=== PATIENT | female | born 1955 | race African-American/Black ===

== ENCOUNTER 2018-12-28 18:55 | Emergency (ER) | payer MEDICAID ==
[~2018-12-28] VITALS: Ht 162.6 cm; Wt 73.0 kg
[~2018-12-28 18:55] MED LIST: AMLO10TA4 MT; FURO-151 MT; SERT50TA12 PO
[2018-12-28 20:22] LABS: CHLORIDE 105 mEq/L (98-107)
[2018-12-28 20:26] LABS: INR 1.1; PARTIAL THROMBOPLASTIN TIME 27.5 sec (23.4-31.0); PROTHROMBIN TIME 10.7 sec (9.1-11.1)
[2018-12-28 20:27] LABS: EOSINOPHILS % 2.9 % (0.0-5.0); HEMATOCRIT. 38.5 % (36.0-48.0); HEMOGLOBIN. 12.6 g/dL (12.0-16.0); LYMPHOCYTES % 45.4 % (20.0-50.0); MEAN CORPUSCULAR HEMOGLOBIN 30.6 pg (28.0-32.0); MEAN CORPUSCULAR VOLUME 93.4 fL (81.0-99.0); MEAN PLATELET VOLUME 10.7 fl (7.4-10.4); MONOCYTES % 6.8 % (2.0-8.0); NEUTROPHILS % 43.9 % (40.0-76.0); PLATELET 142 x1000/uL (130-400); RED BLOOD CELL COUNT 4.12 mill/uL (4.2-5.4); RED CELL DISTRIBUTION WIDTH 17.4 % (11.6-14.6)
[2018-12-28] MEDS ORDERED: METHYLPREDNISOLONE SOD SUCC 125 MG/2 ML VIAL IV STA (20:38)
[2018-12-28] MEDS ORDERED: ALBUTEROL (0.083%) 2.5MG/3ML NEB HHN STA (20:38)
[2018-12-28] MEDS ORDERED: IPRATROPIUM BROMIDE (0.02%) 0.5MG/2.5ML NEB HHN STA (20:38)
[2018-12-28] MEDS ORDERED: TRAMADOL 50MG TABLET PO ONE (22:00)
[2018-12-29 00:12] VITALS: BP 149/92
== END 2018-12-29 00:16 | disposition home or self-care (01) ==
LOC: ER 18:55
DX: J45.901 Unspecified asthma with (acute) exacerbation (principal); R09.89 Other specified symptoms and signs involving the circulatory and respiratory systems; E66.9 Obesity, unspecified; I11.0 Hypertensive heart disease with heart failure; I50.9 Heart failure, unspecified; E11.9 Type 2 diabetes mellitus without complications; Z76.0 Encounter for issue of repeat prescription
CPT/HCPCS: 36415; 71045; 80048; 83880; 84484; 85025; 85610; 85730; 93005; 94640; 96374; 99284; J2930; J7611; Z7610